=== PATIENT | female | born 1985 | race African-American/Black ===

== ENCOUNTER 2024-03-29 21:24 | Emergency (ER) | payer MEDICAID ==
[~2024-03-29] VITALS: Ht 170.2 cm; Wt 85.0 kg
[2024-03-29 21:35] VITALS: TEMP 36.9; O2SAT 98
[2024-03-29 21:43] VITALS: BP 117/78; PULSE 113; RESP 18; O2SAT 99
[2024-03-29 23:04] LABS: CLARITY URINE CLOUDY (CLEAR); COLOR URINE YELLOW (YELLOW); GLUCOSE URINE NEGATIVE (NEGATIVE); KETONES URINE NEGATIVE (NEGATIVE); LEUKOCYTE ESTERASE URINE 1+ (NEGATIVE); NITRITE URINE POSITIVE (NEGATIVE); OCCULT BLOOD URINE NEGATIVE (NEGATIVE); PROTEIN URINE NEGATIVE (NEGATIVE); SPECIFIC GRAVITY URINE 1.019 (1.005-1.030)
[2024-03-29 23:32] LABS: SQUAMOUS EPITHELIAL CELL URINE 2+ /lpf (RARE/1+)
[2024-03-29 23:33] LABS: BACTERIA URINE 2+; RBC URINE 0-2 /hpf (0-2)
[2024-03-29] MEDS ORDERED: ACETAMINOPHEN 500MG TABLET PO ONE (23:45)
[2024-03-30] MEDS ORDERED: KETOROLAC 15MG/ML VIAL IM ONE (00:15)
== END 2024-03-30 04:37 | disposition left against medical advice (07) ==
LOC: ER 21:24
DX: M79.10 Myalgia, unspecified site (principal); M54.2 Cervicalgia; M54.50 Low back pain, unspecified; N39.0 Urinary tract infection, site not specified; J45.909 Unspecified asthma, uncomplicated; Z88.0 Allergy status to penicillin
CPT/HCPCS: 81003; 99283